=== PATIENT | male | born 1945 | race Caucasian/White ===

== ENCOUNTER 2020-09-06 19:59 | Inpatient (IN) | payer MEDICARE ==
[~2020-09-06] VITALS: Ht 165.1 cm; Wt 59.0 kg
[~2020-09-06 19:59] MED LIST: ALPRAZOLAM0.5 MG PO; ASPIRIN EC325 MG PO; AUGMENTIN TAB875 MG PO; CELEXA20 MG PO; FLONASE 0.05% N16 GM; IMDUR ER TAB 3030 MG PO; KEPPRA750 MG PO; NORCO 10-325 T1 EACH PO; PLAVIX 75 MG TA75 MG PO; ZOCOR40 MG PO
[2020-09-06 20:30] LABS: HEMOGLOBIN 13.1 gm/dl (14.0-17.5); RED BLOOD COUNT 4.2 M/UL (4.20-5.50); WHITE BLOOD COUNT 16.5 K/UL (4.5-11.0)
[2020-09-06 20:57] LABS: BUN/CREATININE RATIO 19 (0-10)
[2020-09-08 02:33] LABS: HEMOGLOBIN 12.5 gm/dl (14.0-17.5); RED BLOOD COUNT 4.02 M/UL (4.20-5.50); WHITE BLOOD COUNT 15.3 K/UL (4.5-11.0)
[2020-09-08 02:55] LABS: BUN/CREATININE RATIO 24 (0-10)
[2020-09-08] MEDS ORDERED: IPRAT-ALBUT 0.5-3 ML NEB (10:10)
[2020-09-08] MEDS ORDERED: AZITHROMYCIN250 MG PO (10:10)
[2020-09-08] MEDS ORDERED: METHYLPREDNISOLO4 M1 PO (10:10)
== END 2020-09-08 11:13 | disposition home or self-care (01) | DRG 189 ==
LOC: ER1 19:59 → CDU 09-07 00:16 → MED SURG 4 09-07 00:16
PROVIDERS: Emergency Medicine; Internal Medicine; ADMIT Family Medicine
DX: J96.01 Acute respiratory failure with hypoxia (principal); J44.1 Chronic obstructive pulmonary disease with (acute) exacerbation; J44.0 Chronic obstructive pulmonary disease with (acute) lower respiratory infection; J20.9 Acute bronchitis, unspecified; E78.5 Hyperlipidemia, unspecified; I25.10 Atherosclerotic heart disease of native coronary artery without angina pectoris; F17.210 Nicotine dependence, cigarettes, uncomplicated; Z20.828 Contact with and (suspected) exposure to other viral communicable diseases; Z88.1 Allergy status to other antibiotic agents; F41.9 Anxiety disorder, unspecified; R91.1 Solitary pulmonary nodule; I65.29 Occlusion and stenosis of unspecified carotid artery; I11.0 Hypertensive heart disease with heart failure; I50.9 Heart failure, unspecified
CPT/HCPCS: 36415; 36600; 71045; 80048; 80053; 82550; 82553; 82803; 82962; 83605; 83690; 83735; 83874; 83880; 84100; 84484; 85025; 85610; 85730; 86140; 93005; 94640; 94664; 94760; 96365; 96375; 96376; 99285; J1650; J1956; J2920; J2930; J7070; Q9967; U0002

== ENCOUNTER → 2020-09-18 | Outpatient (CLI) | payer MEDICARE ==
[~2020-09-18] MED LIST changes: +AZITHROMYCIN250 MG PO; +IPRAT-ALBUT 0.5-3 ML NEB; +METHYLPREDNISOLO4 M1 PO
== END ==
LOC: HEART 5 10:04
DX: R06.02 Shortness of breath (principal); R94.2 Abnormal results of pulmonary function studies; F17.210 Nicotine dependence, cigarettes, uncomplicated; Z20.822 Contact with and (suspected) exposure to COVID-19
CPT/HCPCS: 94010; 94729; U0003

== ENCOUNTER → 2020-09-22 | Day surgery (SDC) | payer MEDICARE | END | disposition home or self-care (01) | LOC: OR 06:40 | DX: R91.1 Solitary pulmonary nodule (principal); J44.1 Chronic obstructive pulmonary disease with (acute) exacerbation; I25.119 Atherosclerotic heart disease of native coronary artery with unspecified angina pectoris; I73.9 Peripheral vascular disease, unspecified; E78.5 Hyperlipidemia, unspecified; K27.9 Peptic ulcer, site unspecified, unspecified as acute or chronic, without hemorrhage or perforation; K21.9 Gastro-esophageal reflux disease without esophagitis; I13.10 Hypertensive heart and chronic kidney disease without heart failure, with stage 1 through stage 4 chronic kidney disease, or unspecified chronic kidney disease; N18.9 Chronic kidney disease, unspecified; G89.29 Other chronic pain; G45.9 Transient cerebral ischemic attack, unspecified; M15.9 Polyosteoarthritis, unspecified; F17.210 Nicotine dependence, cigarettes, uncomplicated; Z88.0 Allergy status to penicillin; Z20.822 Contact with and (suspected) exposure to COVID-19; Z79.899 Other long term (current) drug therapy; Z80.42 Family history of malignant neoplasm of prostate; Z82.49 Family history of ischemic heart disease and other diseases of the circulatory system; Z80.1 Family history of malignant neoplasm of trachea, bronchus and lung; Z98.890 Other specified postprocedural states | CPT/HCPCS: 76000; J2704; J3010; J7120 ==

== ENCOUNTER → 2020-11-09 | Outpatient (CLI) | payer MEDICARE | LOC: KOH-I 09:46 | DX: I65.29 Occlusion and stenosis of unspecified carotid artery (principal); G44.89 Other headache syndrome; H53.9 Unspecified visual disturbance | CPT/HCPCS: 70450 ==

== ENCOUNTER → 2021-05-25 | Outpatient (CLI) | payer MEDICARE | LOC: RAD 15:53 | DX: S70.02XA Contusion of left hip, initial encounter (principal); W19.XXXA Unspecified fall, initial encounter | CPT/HCPCS: 73502 ==

== ENCOUNTER 2021-08-31 14:47 | Emergency (ER) | payer MEDICARE ==
[2021-08-31 18:17] LABS: HEMOGLOBIN 13.2 gm/dl (14.0-17.5); RED BLOOD COUNT 4.11 M/UL (4.20-5.50); WHITE BLOOD COUNT 10.5 K/UL (4.5-11.0)
[2021-08-31] MEDS ORDERED: BACTROBAN OINT22 GM EXT (19:11)
[2021-08-31 19:16] LABS: BUN/CREATININE RATIO 20 (0-10)
== END 2021-08-31 19:52 | disposition home or self-care (01) ==
LOC: ER1 14:47
PROVIDERS: Physician Assistant
DX: R55 Syncope and collapse (principal); S22.089A Unspecified fracture of T11-T12 vertebra, initial encounter for closed fracture; S00.01XA Abrasion of scalp, initial encounter; D64.9 Anemia, unspecified; Z23 Encounter for immunization; E87.1 Hypo-osmolality and hyponatremia; F17.200 Nicotine dependence, unspecified, uncomplicated; I25.10 Atherosclerotic heart disease of native coronary artery without angina pectoris; W22.8XXA Striking against or struck by other objects, initial encounter
CPT/HCPCS: 70450; 71045; 72128; 72131; 72170; 80053; 82550; 82553; 83874; 84484; 85025; 90715; 93005; 99284

== ENCOUNTER 2021-12-27 15:42 | Inpatient (IN) | payer MEDICARE ==
[~2021-12-27] VITALS: Ht 165.1 cm; Wt 51.3 kg
[~2021-12-27 15:42] MED LIST changes: +BACTROBAN OINT22 GM EXT; +MEGACE 400400 MG/10 PO
[2021-12-27] MEDS ORDERED: HYDROCODON-ACE1 EAC4 PO (17:39)
[2021-12-27] MEDS ORDERED: HYDROCODON-ACE1 EAC6 PO (17:43)
[2021-12-27 20:24] LABS: HEMOGLOBIN 10.2 gm/dl (14.0-17.5); RED BLOOD COUNT 3.42 M/UL (4.20-5.50); WHITE BLOOD COUNT 10.5 K/UL (4.5-11.0)
[2021-12-27 20:56] LABS: BUN/CREATININE RATIO 25 (0-10)
[2021-12-27] MEDS ORDERED: PROAIR HFA8.5 GM INH (23:58)
[2021-12-27] MEDS ORDERED: STIOLTO RESPIMAT4 GM INH (23:59)
[2021-12-28] MEDS ORDERED: MUCINEX600 MG PO (00:02)
[2021-12-28] MEDS ORDERED: PROTONIX 40 MG40 M1 PO (00:03)
[2021-12-28] MEDS ORDERED: NITROSTAT0.4 MG SL (00:03)
--- NOTE | 2021-12-28 02:04 | NUR ---
PROVIDER CALLED TO REVIEW LABS ON PATIENT AND ORDERED [facility] Q 8HR. I PLACED THE ORDERS AND PHARMACY CALLED TO ADDRESS [facility]. I CONTACTED THE PROVIDER TO DOUBLE CHECK THE ORDER AND VERIFY. PROVIDER SAID YES CONTINUE WITH [facility].
[2021-12-28 06:43] LABS: HEMOGLOBIN 10.6 gm/dl (14.0-17.5); RED BLOOD COUNT 3.61 M/UL (4.20-5.50); WHITE BLOOD COUNT 9.1 K/UL (4.5-11.0)
[2021-12-28 07:12] LABS: BUN/CREATININE RATIO 19 (0-10)
[2021-12-28] MEDS ORDERED: ARTHRITIS PAIN150 GM TP (10:14)
[2021-12-29 06:57] LABS: HEMOGLOBIN 9.7 gm/dl (14.0-17.5); RED BLOOD COUNT 3.28 M/UL (4.20-5.50); WHITE BLOOD COUNT 8.9 K/UL (4.5-11.0)
[2021-12-29 07:50] LABS: BUN/CREATININE RATIO 16 (0-10)
[2021-12-29] MEDS ORDERED: DOXYCYCLINE HY100 M2 PO (11:16)
== END 2021-12-29 12:34 | disposition home or self-care (01) | DRG 194 ==
LOC: M/S 17:01
PROVIDERS: ADMIT Family Medicine
DX: J15.9 Unspecified bacterial pneumonia (principal); J44.0 Chronic obstructive pulmonary disease with (acute) lower respiratory infection; J30.9 Allergic rhinitis, unspecified; F41.9 Anxiety disorder, unspecified; Z20.822 Contact with and (suspected) exposure to COVID-19; I65.29 Occlusion and stenosis of unspecified carotid artery; M19.90 Unspecified osteoarthritis, unspecified site; E53.8 Deficiency of other specified B group vitamins; K21.9 Gastro-esophageal reflux disease without esophagitis; E78.5 Hyperlipidemia, unspecified; E78.00 Pure hypercholesterolemia, unspecified; F32.A Depression, unspecified; M54.9 Dorsalgia, unspecified; F17.210 Nicotine dependence, cigarettes, uncomplicated; J40 Bronchitis, not specified as acute or chronic; R62.7 Adult failure to thrive; M51.36 Other intervertebral disc degeneration, lumbar region; M54.17 Radiculopathy, lumbosacral region; I10 Essential (primary) hypertension; N40.0 Benign prostatic hyperplasia without lower urinary tract symptoms; I25.10 Atherosclerotic heart disease of native coronary artery without angina pectoris; G89.4 Chronic pain syndrome; Z95.5 Presence of coronary angioplasty implant and graft; Z91.81 History of falling; Z86.73 Personal history of transient ischemic attack (TIA), and cerebral infarction without residual deficits; Z88.1 Allergy status to other antibiotic agents; Z28.310 Unvaccinated for COVID-19; Z90.49 Acquired absence of other specified parts of digestive tract; Z98.890 Other specified postprocedural states; Z80.1 Family history of malignant neoplasm of trachea, bronchus and lung; Z80.42 Family history of malignant neoplasm of prostate; Z82.3 Family history of stroke; Z78.9 Other specified health status; Z79.01 Long term (current) use of anticoagulants; Z79.82 Long term (current) use of aspirin
CPT/HCPCS: 36415; 36600; 70450; 71045; 71250; 80048; 80053; 82550; 82553; 82803; 83605; 83880; 84484; 85025; 85027; 87040; 87070; 87086; 87205; 93005; 94640; 94664; 94760; J2543; J7030; J7070; U0002